=== PATIENT | female | born 1995 | race Caucasian/White ===

== ENCOUNTER 2017-01-07 02:08 | Emergency (ER) | payer SELFPAY ==
[2017-01-07] MEDS ORDERED: METOCLOPRAMIDE HCL 5 MG TABLET PO ONE (02:29)
[2017-01-07] MEDS ORDERED: KETOROLAC TROMETHAMINE 30 MG/1ML VIAL IVP ONE (02:29)
[2017-01-07] MEDS ORDERED: HYOSCYAMINE SULFATE 0.125 MG TAB.SUBL SL ONE (02:30)
[2017-01-07] MEDS ORDERED: 0.9 % SODIUM CHLORIDE 1,000 ML IV SCH (02:30)
[2017-01-07] MEDS ORDERED: 0.9 % SODIUM CHLORIDE 1,000 ML IV ONE (02:38)
[2017-01-07 03:20] LABS: eGFR (African) > 60; eGFR (Non-African) > 60
[2017-01-07 03:35] LABS: BASOPHILS % 0.5 (0.0-1.5); EOSINOPHILS % 1.2 % (0.0-6.8); MEAN CORPUSCULAR HEMOGLOBIN 31.3 pg (28.0-34.0); MEAN CORPUSCULAR VOLUME 94.1 fl (80.0-100.0); MONOCYTES % 3.5 % (0.0-11.0); NEUTROPHILS # 8.6 # k/uL (1.4-7.7)
[2017-01-07] MEDS ORDERED: SULFAMETHOXAZOLE/TRIMETHOPRIM 1 EACH TABLET PO ONE (04:11)
[2017-01-07 04:37] VITALS: BP 114/72
--- NOTE | 2017-01-07 04:54 | ED Physician Documentation ---
General Adult - HISTORIAN Historian: patient - HPI Stated Complaint: right flank pain Chief Complaint: General Adult Additional Information: right flank pain started 3 hours ago Onset: hours (3) Timing: still present Severity: moderate Modifying Factors: none Context: spontaneous Quality: sharp Location: right flank Further Comments: no - ROS CONST: no problems EYES/ENT: none CVS/RESP: none GI/: other (right flank pain) MS/SKIN/LYMPH: none NEURO/PSYCH: denies: headache, fainting, dizziness, tingling, numbness, difficulty walking, difficulty with speech, anxiety, depression - PAST HX Past History: other (PCOS) Other History: none Surgeries/Procedures: none Immunizations: referred to PCP Allergies/Adverse Reactions: Allergies Allergy/AdvReac Type Severity Reaction Status Date / Time No Known Allergies Allergy Verified 01/07/17 03:34 Home Medications: Ambulatory Orders Medication Instructions Recorded NK [NK] 01/07/17 - SOCIAL HX Smoking History: non-smoker Alcohol Use: none Drug Use: none - FAMILY HX Family History: No - VITAL SIGNS Vital Signs: Vital Signs Temp Pulse Resp BP Pulse Ox 98.4 F 72 16 114/72 98 01/07/17 04:30 01/07/17 04:30 01/07/17 04:30 01/07/17 04:30 01/07/17 04:30 - REVIEWED ASSESSMENTS Nursing Assessment Reviewed: Yes Vitals Reviewed: Yes Progress - Results/Orders Results/Orders: cbc, cmp, ua, ucg, ct abdomen/pelvis ordered - Progress Progress: pt. given 30 mg toradol ivp, 1 liter ns ivpb, reglan 10 mg p.o., hyoscyamine 0.25 mg p.o. in er with resolution of symptoms Critical Care Note - Critical Care Note Total Time (mins): 0 ED Results Lab/Radiology - Lab Results Lab Results: Lab Results 01/07/17 01/07/17 02:41 02:41 WBC 10.70 K/ul K/ul (4.00-12.00) RBC 4.69 M/ul M/ul (3.90-5.20) Hgb 14.7 g/dL g/dL (12.0-16.0) Hct 44.2 % % (34.5-46.5) MCV 94.1 fl fl (80.0-100.0) MCH 31.3 pg pg (28.0-34.0) MCHC 33.3 g/dL g/dL (30.0-36.0) RDW 12.5 % % (11.3-14.3) Plt Count 189 K/mm3 K/mm3 (130-400) Neut % (Auto) 80.1 % H % (39.0-79.0) Lymph % (Auto) 14.1 % L % (16.0-50.0) Bandera % (Auto) 3.5 % % (0.0-11.0) Eos % (Auto) 1.2 % % (0.0-6.8) Baso % (Auto) 0.5 (0.0-1.5) Neut # 8.6 # k/uL H # k/uL (1.4-7.7) Lymph # 1.5 # k/uL # k/uL (0.6-4.0) Bandera # 0.4 # k/uL # k/uL (0.0-0.9) Eos # 0.1 # k/uL # k/uL (0.0-0.6) Baso # 0.0 # k/uL # k/uL (0.0-0.5) Reactive Lymphs % 0.6 % % (0.0-5.0) Reactive Lymphs # 0.1 # k/uL # k/uL (0.0-0.8) Sodium 136 mmol/L mmol/L (136-145) Potassium 4.5 mmol/L mmol/L (3.5-5.0) Chloride 110 mmol/L mmol/L (98-110) Carbon Dioxide 24 mmol/L mmol/L (20-32) BUN 10 mg/dL mg/dL (10-26) Creatinine 0.9 mg/dL mg/dL (0.4-1.5) Est GFR ( Amer) > 60 (60 - ) Est GFR (Non-Af Amer) > 60 (60 - ) Glucose 123 mg/dL H mg/dL (70-99) Calcium 9.0 mg/dL mg/dL (8.5-10.5) Total Bilirubin 0.4 mg/dL mg/dL (0.2-1.2) AST 21 U/L U/L (0-41) ALT 20 U/L U/L (0-45) Alkaline Phosphatase 93 U/L U/L (46-116) Total Protein 7.0 g/dL g/dL (6.0-8.5) Albumin 4.0 g/dL g/dL (3.0-5.5) Amylase 33 U/L U/L (20-104) - Radiology Radiology Impressions: ct abdomen/pelvis without contrast neg - Orders Orders: ED Orders Category Date Time Status Remove IV/Saline Lock 1T Care 01/07/17 02:[address] ABD & PELVIS W/O CON Stat Exams 01/07/17 Taken AMYLASE Routine Lab 01/07/17 02:41 Completed CBC/PLATELET/DIFF Routine Lab 01/07/17 02:41 Completed CMP Routine Lab 01/07/17 02:41 Completed URINALYSIS Routine Lab 01/07/17 02:30 Ordered URINE HCG Routine Lab 01/07/17 04:00 Ordered 0.9 % Sodium Chloride [Normal Saline] 1,000 ml Med 01/07/17 02:30 Discontinued IV .Q1H 0.9 % Sodium Chloride [Normal Saline] 1,000 ml Med 01/07/17 02:38 Discontinued IV .STK-MED Hyoscyamine Sulfate [Oscimin Sl] Med 01/07/17 02:30 Discontinued 0.25 mg SL NOW ONE Ketorolac Tromethamine [Toradol] Med 01/07/17 02:29 Discontinued 30 mg IVP NOW ONE Metoclopramide HCl [Reglan] Med 01/07/17 02:29 Discontinued 10 mg PO NOW ONE Sulfamethoxazole/Trimethoprim [Bactrim Ds] Med 01/07/17 04:11 Discontinued 1 each PO NOW ONE General Adult Physical Exam - PHYSICAL EXAM GENERAL APPEARANCE: mild distress EENT: eye inspection normal, ENT inspection normal, pharynx normal, no signs of dehydration, [place], no nystagmus, TM's nml NECK: normal inspection, thyroid normal, supple RESPIRATORY: no resp distress, chest non-tender, breath sounds normal CVS: reg rate & rhythm, heart sounds normal, equal pulses ABDOMEN: soft, no organomegaly, normal bowel sounds, no abdominal bruit, no distension, tenderness (right upper quadrant and flank). No: hepatomegaly, mass BACK: normal inspection, no CVA tenderness SKIN: warm/dry, normal color EXTREMITIES: non-tender, normal range of motion, no evidence of injury, no edema NEURO: oriented X3, CN's nml as tested, motor nml, sensation nml, mood/affect nml, cognition normal Discharge Clincal Impression: UTI (urinary tract infection) Qualifiers: Urinary tract infection type: acute cystitis Hematuria presence: with hematuria Qualified Code(s): N30.01 - Acute cystitis with hematuria Home Medications: Ambulatory Orders NK [NK] 01/07/17 Comments: pt. discharged with script for bactrim ds 1 p.o. bid #20 and toradol 10 mg #15 1 p.o. qid prn pain Condition: Stable Disposition: 01 HOME, SELF-CARE Decision to Admit: NO Decision Time: 04:25
--- NOTE | 2017-01-07 05:38 | Diagnostic Imaging Report ---
DAVIAN CLARKE~ [facility] [address] [facility] [address] [place], [place]. [address] ~ ~ ~ ~ Report Submission Date: January 07, 2017 3:08:16 AM CDT Patient ~ Study Name: GHADA BENAVIDES ~ Date: January 07, 2017 2:50:29 AM CDT ~ Modality Type: CT\SR Gender: F ~ Description: CT ABD & PELVIS W/O CO : 93 ~ Institution: [facility] Physician: DAVIAN CLARKE ~ ~ ~ ~ CT abdomen and pelvis without contrast Date of study: 07 Jan 2017 CLINICAL HISTORY:~ PT STATES RUQ PAIN FOR 3 HOURS, DULL PAINS THAT PUT PRESSURE ON THE BACK AND CHEST AREA (Hx) / RUQ PAIN (DICOM Hx) TECHNIQUE: 5 mm contiguous axial images of the abdomen and pelvis non contrast.~ FINDINGS: The lung bases are clear. Abdomen: The liver, pancreas and spleen are normal in appearance. The gallbladder is unremarkable. The kidneys are normal in size and surface contour. There is no evidence of renal or ureteral calculi identified. No hydronephrosis or perinephric stranding is evident. The aorta is normal in caliber. The small and large bowel are nondistended. There is no evidence of free air or free fluid. Pelvis: The small and large bowel remain normal in appearance. The distal ureters and bladder are normal in appearance. There is no evidence of distal ureteral or intravesicular calculi. . There is no evidence of free air or free fluid. The sigmoid colon and rectum are normal. The remaining pelvic structures are within normal limits and the bones of the pelvis are intact. The appendix is normal. IMPRESSION: No acute abdominal or pelvic pathology ~ Electronically signed on January 07, 2017 3:08:16 AM CDT by: Александр PALACIOS
[2017-01-07 05:46] LABS: APPEARANCE,URINE CLOUDY (CLEAR); COLOR,URINE YELLOW (YELLOW)
[2017-01-07 05:47] LABS: OCCULT BLOOD,URINE 2+ (NEGATIVE); PH URINE 7.5 (5.0 - 8.0); UROBILINOGEN URINE 0.2 Eu (0.2-1.0)
== END 2017-01-07 04:30 | disposition home or self-care (01) ==
LOC: ED 02:08
DX: N30.01 Acute cystitis with hematuria (principal)
CPT/HCPCS: 74176; 80053; 81002; 81025; 82150; 85025; 87086; A9270; J1885; J7030; 96361; 96374; 99283; S1016